=== PATIENT | male | born 1995 | race African-American/Black ===

== ENCOUNTER 2020-03-29 09:52 | Emergency (ER) | payer OTHER ==
[~2020-03-29] VITALS: Ht 165.1 cm; Wt 92.2 kg
--- NOTE | 2020-03-29 11:01 | REP ---
INDICATION: sob/cough. COMPARISON: None. TECHNIQUE: AP seated portable chest FINDINGS: Lungs are well inflated. No gross pleural effusion, dense consolidation or parenchymal mass. There is left ventricular configuration of the heart which may be exaggerated by AP portable technique. No vascular redistribution or edema. The aorta mediastinal contours are normal. Airway intact. Dawson thorax without acute finding. No free air under the diaphragm. IMPRESSION: 1. Lungs well inflated and clear. 2. Left ventricular configuration of the heart which may be exaggerated by AP portable technique. No vascular redistribution or edema. <Electronically signed by Geovanny Montero > 03/29/20 [id number]
[2020-03-29] MEDS ORDERED: AMOX500C PO (11:25)
[2020-03-29] MEDS ORDERED: ACETAMINOPHEN 325 MG TAB PO ONE (11:30)
[2020-03-29 11:44] VITALS: BP 136/92
[2020-03-29 11:51] LABS: INFLUENZA A AMPLIFICATION NEGATIVE (NEGATIVE); INFLUENZA B AMPLIFICATION NEGATIVE (NEGATIVE)
--- NOTE | 2020-03-29 19:41 | ECGEPIP ---
[facility] - ED Test Date: 2020-03-29 Pat Name: LESLIE WORLEY Department: Room: - Gender: Male Sat Act Instructor: RADHA : 1995 Requested By: Roxy Angeles Order Number: [id number] Reading MD: Mago Porter Measurements Intervals [place] Rate: 68 P: 50 VA: 146 QRS: 50 QRSD: 86 T: -8 QT: 353 QTc: 378 Interpretive Statements SINUS RHYTHM WITH SINUS ARRHYTHMIA NSTTW abnormalities NO PRIOR Electronically Signed on 03-29-2020 19:40:52 EST by Mago Porter
--- NOTE | 2020-03-30 06:46 | ED PDOC ---
Post-Departure Follow-Up giovanna ramos formal report of cxr for fu Roxy Leon MD Mar 30, 2020 06:46
== END 2020-03-29 11:46 | disposition home or self-care (01) ==
LOC: M ED 09:52
DX: J02.0 Streptococcal pharyngitis (principal); R05 Cough; Z20.828 Contact with and (suspected) exposure to other viral communicable diseases
CPT/HCPCS: 71045; 87502; 87880; 93005; 99284; U0003

== ENCOUNTER 2020-06-02 21:27 | Emergency (ER) | payer OTHER ==
[~2020-06-02] VITALS: Ht 165.1 cm; Wt 81.8 kg
[~2020-06-02 21:27] MED LIST: AMOX500C PO
[2020-06-02 21:28] VITALS: BP 132/86
== END 2020-06-02 22:45 | disposition left against medical advice (07) ==
LOC: M ED 21:27
DX: Z53.21 Procedure and treatment not carried out due to patient leaving prior to being seen by health care provider (principal)

== ENCOUNTER 2020-06-04 09:00 | Emergency (ER) | payer OTHER ==
[~2020-06-04] VITALS: Ht 162.6 cm; Wt 88.8 kg
[2020-06-04 09:01] VITALS: BP 134/87
== END 2020-06-04 11:04 | disposition home or self-care (01) ==
LOC: M ED 09:00
DX: U07.1 COVID-19 (principal)

== ENCOUNTER 2020-08-03 15:20 | Emergency (ER) | payer OTHER ==
[~2020-08-03] VITALS: Ht 162.6 cm; Wt 92.5 kg
[2020-08-03 15:20] VITALS: BP 141/72
[2020-08-03] MEDS ORDERED: PENICILLIN V POTASSIUM 500 MG TAB PO ONE (16:05)
[2020-08-03] MEDS ORDERED: PENI500T PO (16:10)
== END 2020-08-03 16:15 | disposition home or self-care (01) ==
LOC: M ED 15:20
DX: J02.0 Streptococcal pharyngitis (principal); R09.81 Nasal congestion; Z86.16 Personal history of COVID-19

== ENCOUNTER 2022-04-12 12:13 | Emergency (ER) | payer OTHER ==
[~2022-04-12] VITALS: Ht 165.1 cm; Wt 81.8 kg
[~2022-04-12 12:13] MED LIST changes: +PENI500T PO
[2022-04-12] MEDS ORDERED: KETOROLAC 30 MG/ML 1ML VIAL IV ONE (13:40)
[2022-04-12] MEDS ORDERED: NS 1,000 ML IV ONE (13:40)
[2022-04-12] MEDS ORDERED: ISOVUE-370 76% 100ML VIAL As Ordered ONE (13:43)
[2022-04-12 14:09] LABS: BASO % 0.5 % (0.0-1.0); EOS # 0.1 10^3/uL (0.0-0.5); EOS % 3.3 % (0.0-3.0); HEMATOCRIT 44.4 % (42.0-52.0); HEMOGLOBIN 15.2 g/dl (13.5-17.5); LYMPH # 1.6 10^3/uL (1.5-5.0); LYMPH % 43.7 % (24.0-44.0); MEAN CORPUSCULAR HEMOGLOBIN 29.7 pg (27.0-33.0); MEAN CORPUSCULAR HGB CONC 34.2 g/dl (32.0-36.5); MEAN CORPUSCULAR VOLUME 86.9 fl (80.0-96.0); MONO # 0.2 10^3/uL (0.0-0.8); NEUTROPHILS # 1.7 10^3/uL (1.5-8.5); NEUTROPHILS % 46.2 % (36.0-66.0); PLATELET COUNT, AUTOMATED 234 10^3/uL (150-450); RED BLOOD COUNT 5.11 10^6/uL (4.30-6.10); WHITE BLOOD COUNT 3.6 10^3/uL (4.0-10.0)
[2022-04-12 14:56] LABS: ALBUMIN 4.3 G/DL (3.2-5.2); ALT/SGPT 60 U/L (7.0-40); BILIRUBIN,DIRECT < 0.1 MG/DL (<0.4); BILIRUBIN,TOTAL 0.5 MG/DL (0.3-1.2); TOTAL PROTEIN 6.9 G/DL (5.7-8.2)
[2022-04-12] MEDS ORDERED: NAPR-837 PO (16:03)
[2022-04-12 16:16] VITALS: BP 135/85
== END 2022-04-12 16:23 | disposition home or self-care (01) ==
LOC: M ED 12:13
DX: S76.211A Strain of adductor muscle, fascia and tendon of right thigh, initial encounter (principal); N28.1 Cyst of kidney, acquired; Z91.018 Allergy to other foods; Z88.6 Allergy status to analgesic agent; Y93.9 Activity, unspecified
CPT/HCPCS: 74177; 80047; 80076; 81000; 81015; 85025; 87086; 96361; 96374; 99284; J1885

== ENCOUNTER 2022-06-19 01:38 | Emergency (ER) | payer OTHER ==
[~2022-06-19] VITALS: Ht 165.1 cm; Wt 82.3 kg
[~2022-06-19 01:38] MED LIST changes: +NAPR-837 PO
[2022-06-19] MEDS ORDERED: ACETAMINOPHEN 325 MG TAB PO ONE (01:55)
[2022-06-19] MEDS ORDERED: ACETAMINOPHEN TAB 650MG DOSE (2X325MG) PO ONE (02:05)
[2022-06-19] MEDS ORDERED: IBUPROFEN 600MG TAB PO ONE (04:25)
[2022-06-19] MEDS ORDERED: CEPH500C PO (06:23)
[2022-06-19 06:27] VITALS: BP 128/81
== END 2022-06-19 06:36 | disposition home or self-care (01) ==
LOC: M ED 01:38
DX: U07.1 COVID-19 (principal); J02.9 Acute pharyngitis, unspecified; F17.200 Nicotine dependence, unspecified, uncomplicated; Z91.018 Allergy to other foods; Z79.899 Other long term (current) drug therapy

== ENCOUNTER 2022-07-19 10:30 | Emergency (ER) | payer OTHER ==
[~2022-07-19] VITALS: Ht 162.6 cm; Wt 87.1 kg
[~2022-07-19 10:30] MED LIST changes: +CEPH500C PO
[2022-07-19] MEDS ORDERED: ALBUTEROL 90 MCG/ACT 8GM HFA INHALER INH ONE (12:10)
[2022-07-19] MEDS ORDERED: VENTAER INH (13:42)
[2022-07-19 13:50] VITALS: BP 142/80
== END 2022-07-19 13:51 | disposition home or self-care (01) ==
LOC: M ED 10:30
DX: J98.01 Acute bronchospasm (principal); Z86.16 Personal history of COVID-19; F17.290 Nicotine dependence, other tobacco product, uncomplicated; Z91.018 Allergy to other foods

== ENCOUNTER 2022-09-11 19:38 | Emergency (ER) | payer OTHER ==
[~2022-09-11] VITALS: Ht 162.6 cm; Wt 88.2 kg
[~2022-09-11 19:38] MED LIST changes: +VENTAER INH
[2022-09-11 19:44] VITALS: BP 157/99
[2022-09-12] MEDS ORDERED: CYCL5TAB PO (12:16)
[2022-09-12] MEDS ORDERED: IBUP200C25 PO (17:25)
[2022-09-12] MEDS ORDERED: VENTAER INH (17:25)
== END 2022-09-12 00:16 | disposition left against medical advice (07) ==
LOC: EDBD 19:38 → M ED 19:38
DX: Z53.21 Procedure and treatment not carried out due to patient leaving prior to being seen by health care provider (principal)

== ENCOUNTER 2022-09-12 12:03 | Inpatient (IN) | payer OTHER ==
[~2022-09-12] VITALS: Ht 162.6 cm; Wt 89.2 kg
[2022-09-12] MEDS ORDERED: CYCL5TAB PO (12:16)
[2022-09-12 13:15] LABS: HEMATOCRIT 45.7 % (42.0-52.0); HEMOGLOBIN 15.4 g/dl (13.5-17.5); MEAN CORPUSCULAR HEMOGLOBIN 30.1 pg (27.0-33.0); MEAN CORPUSCULAR HGB CONC 33.7 g/dl (32.0-36.5); MEAN CORPUSCULAR VOLUME 89.3 fl (80.0-96.0); PLATELET COUNT, AUTOMATED 272 10^3/uL (150-450); RED BLOOD COUNT 5.12 10^6/uL (4.30-6.10); WHITE BLOOD COUNT 5.9 10^3/uL (4.0-10.0)
[2022-09-12 13:32] LABS: ETHYL ALCOHOL (ETHANOL) 0.003 % (0.000-0.010)
[2022-09-12 13:33] LABS: ACETAMINOPHEN LEVEL < 2.0 UG/ML (10.0-20.0)
[2022-09-12 13:34] LABS: ALBUMIN 4.3 G/DL (3.2-5.2); ALKALINE PHOSPHATASE 52 U/L (46-116); ALT/SGPT 29 U/L (7.0-40); AST/SGOT 24 U/L (<34); BILIRUBIN,DIRECT 0.1 MG/DL (<0.4); BILIRUBIN,TOTAL 0.6 MG/DL (0.3-1.2); BLOOD UREA NITROGEN 15 MG/DL (9-23); CALCIUM LEVEL 9.7 MG/DL (8.5-10.1); CARBON DIOXIDE LEVEL 27 MMOL/L (20-31); CHLORIDE LEVEL 106 MMOL/L (98-107); CREATININE FOR GFR 1.03 MG/DL (0.70-1.30); GLOMERULAR FILTRATION RATE > 60.0 (>60); GLUCOSE, FASTING 71 MG/DL (60-100); POTASSIUM SERUM 4.5 MMOL/L (3.5-5.1); SALICYLATE LEVEL < 3.0 MG/DL (<30); SODIUM LEVEL 140 MMOL/L (136-145); TOTAL PROTEIN 7.8 G/DL (5.7-8.2)
[2022-09-12 13:35] LABS: THYROID STIMULATING HORMONE 1.896 uIU/ML (0.55-4.78)
[2022-09-12 13:44] LABS: AMPHETAMINES LEVEL URINE NEGATIVE (NEGATIVE); BENZODIAZEPINES URINE NEGATIVE (NEGATIVE)
[2022-09-12 13:45] LABS: BARBITURATES URINE NEGATIVE (NEGATIVE); CANNABINOIDS URINE NEGATIVE (NEGATIVE); COCAINE METABOLITE URINE NEGATIVE (NEGATIVE); METHADONE URINE NEGATIVE (NEGATIVE); OPIATES URINE NEGATIVE (NEGATIVE); PHENCYCLIDINE URINE NEGATIVE (NEGATIVE)
[2022-09-12] MEDS ORDERED: PERCOCET 5MG/325MG TAB PO ONE (16:35)
[2022-09-12] MEDS ORDERED: IBUP200C25 PO (17:25)
[2022-09-12] MEDS ORDERED: VENTAER INH (17:25)
[2022-09-12] MEDS ORDERED: HOME MED LIST COMPLETE! XX SCH (17:30)
[2022-09-12] MEDS ORDERED: ALBUTEROL 90 MCG/ACT 8GM HFA INHALER INH PRN (23:00)
[2022-09-12] MEDS ORDERED: traZODone 50 MG TAB PO PRN (23:00)
[2022-09-12] MEDS ORDERED: MAALOX 30 ML SUSP *UDC PO PRN (23:00)
[2022-09-12] MEDS ORDERED: MOM 30ML SUSPENSION UDC PO PRN (23:00)
[2022-09-12] MEDS: ACETAMINOPHEN TAB 650MG DOSE (2X325MG) PO PRN (23:49)
[2022-09-13 00:30] VITALS: BP 128/91
[2022-09-13 05:15] VITALS: BP 122/56
[2022-09-13] MEDS: ACETAMINOPHEN TAB 650MG DOSE (2X325MG) PO PRN ×2 (08:30→18:50)
[2022-09-13] MEDS ORDERED: CYCLOBENZAPRINE 5MG TABLET PO SCH (09:00)
[2022-09-13] MEDS ORDERED: NICOTINE 21MG/24HR 1 EA TRANSDERMAL TD PRN (12:15)
[2022-09-13] MEDS ORDERED: hydrOXYzine 50 MG TAB PO PRN (12:15)
[2022-09-13 17:22] VITALS: BP 129/60
[2022-09-13] MEDS ORDERED: SERTRALINE HCL 25 MG TABLET PO ONE (21:00)
[2022-09-14 06:50] VITALS: BP 141/91
[2022-09-14] MEDS: ACETAMINOPHEN TAB 650MG DOSE (2X325MG) PO PRN ×2 (08:25→14:51)
[2022-09-14] MEDS ORDERED: SERT50TA29 PO (13:22)
[2022-09-14] MEDS ORDERED: NICO21PAT TD (13:22)
[2022-09-14 15:51] VITALS: BP 137/93
[2022-09-14] MEDS: IBUPROFEN 600MG TAB PO PRN (18:48)
[2022-09-14] MEDS ORDERED: SERTRALINE HCL 50 MG TAB PO SCH (21:00)
[2022-09-15 06:57] VITALS: BP 139/88
[2022-09-15] MEDS: IBUPROFEN 600MG TAB PO PRN (08:07)
== END 2022-09-15 11:00 | disposition home or self-care (01) | DRG 881 ==
LOC: M ED 12:03 → M ED INP 19:40 → M PSY 23:30
PROVIDERS: ADMIT Student in an Organized Health Care Education/Training Program; ATTEND Student in an Organized Health Care Education/Training Program
DX: F32.A Depression, unspecified (principal); R45.851 Suicidal ideations; S62.326D Displaced fracture of shaft of fifth metacarpal bone, right hand, subsequent encounter for fracture with routine healing; F17.290 Nicotine dependence, other tobacco product, uncomplicated; F43.23 Adjustment disorder with mixed anxiety and depressed mood; M54.9 Dorsalgia, unspecified; Z56.6 Other physical and mental strain related to work; G89.29 Other chronic pain; Z63.0 Problems in relationship with spouse or partner; Z79.899 Other long term (current) drug therapy; Z20.822 Contact with and (suspected) exposure to COVID-19; Z91.018 Allergy to other foods; Z91.82 Personal history of military deployment

== ENCOUNTER 2022-10-09 22:03 | Inpatient (IN) | payer OTHER ==
[~2022-10-09] VITALS: Ht 162.6 cm; Wt 81.2 kg
[~2022-10-09 22:03] MED LIST changes: +CYCL5TAB PO; +IBUP200C25 PO; +NICO21PAT TD; +SERT50TA29 PO
[2022-10-09 22:54] LABS: HEMATOCRIT 46.5 % (42.0-52.0); HEMOGLOBIN 15.9 g/dl (13.5-17.5); MEAN CORPUSCULAR HEMOGLOBIN 30.3 pg (27.0-33.0); MEAN CORPUSCULAR HGB CONC 34.2 g/dl (32.0-36.5); MEAN CORPUSCULAR VOLUME 88.7 fl (80.0-96.0); PLATELET COUNT, AUTOMATED 279 10^3/uL (150-450); RED BLOOD COUNT 5.24 10^6/uL (4.30-6.10); WHITE BLOOD COUNT 4.9 10^3/uL (4.0-10.0)
[2022-10-09 23:15] LABS: ETHYL ALCOHOL (ETHANOL) < 0.003 % (0.000-0.010)
[2022-10-09 23:16] LABS: ACETAMINOPHEN LEVEL < 2.0 UG/ML (10.0-20.0); ALBUMIN 4.1 G/DL (3.2-5.2); ALKALINE PHOSPHATASE 64 U/L (46-116); ALT/SGPT 44 U/L (7.0-40); AST/SGOT 21 U/L (<34); BILIRUBIN,DIRECT 0.1 MG/DL (<0.4); BILIRUBIN,TOTAL 0.4 MG/DL (0.3-1.2); BLOOD UREA NITROGEN 16 MG/DL (9-23); CALCIUM LEVEL 9.7 MG/DL (8.5-10.1); CARBON DIOXIDE LEVEL 30 MMOL/L (20-31); CHLORIDE LEVEL 107 MMOL/L (98-107); CREATININE FOR GFR 1.17 MG/DL (0.70-1.30); GLOMERULAR FILTRATION RATE > 60.0 (>60); GLUCOSE, FASTING 107 MG/DL (60-100); SALICYLATE LEVEL < 3.0 MG/DL (<30); SODIUM LEVEL 141 MMOL/L (136-145); TOTAL PROTEIN 7.6 G/DL (5.7-8.2)
[2022-10-09 23:18] LABS: THYROID STIMULATING HORMONE 3.159 uIU/ML (0.55-4.78)
[2022-10-10] MEDS ORDERED: SERT50TA29 PO (00:03)
[2022-10-10] MEDS ORDERED: HOME MED LIST COMPLETE! XX SCH (00:05)
[2022-10-10 00:47] LABS: AMPHETAMINES LEVEL URINE NEGATIVE (NEGATIVE); BARBITURATES URINE NEGATIVE (NEGATIVE); BENZODIAZEPINES URINE NEGATIVE (NEGATIVE); CANNABINOIDS URINE NEGATIVE (NEGATIVE); COCAINE METABOLITE URINE NEGATIVE (NEGATIVE); METHADONE URINE NEGATIVE (NEGATIVE); OPIATES URINE NEGATIVE (NEGATIVE); PHENCYCLIDINE URINE NEGATIVE (NEGATIVE)
[2022-10-10] MEDS ORDERED: MOM 30ML SUSPENSION UDC PO PRN (03:25)
[2022-10-10] MEDS ORDERED: MAALOX 30 ML SUSP *UDC PO PRN (03:25)
[2022-10-10] MEDS ORDERED: ACETAMINOPHEN TAB 650MG DOSE (2X325MG) PO PRN (03:25)
[2022-10-10 06:28] VITALS: BP 132/90
[2022-10-10] MEDS: ESCITALOPRAM OXALATE 5MG TABLET (LEXAPRO) PO SCH (09:00)
[2022-10-10] MEDS: NICOTINE 14 MG/24 HR TRANSDERMAL TD SCH (09:00)
[2022-10-10 16:29] VITALS: BP 126/70
[2022-10-10] MEDS: traZODone 50 MG TAB PO PRN (20:10)
[2022-10-11 06:15] VITALS: BP 137/70
[2022-10-11] MEDS: ESCITALOPRAM OXALATE 5MG TABLET (LEXAPRO) PO SCH (08:08)
[2022-10-11] MEDS: NICOTINE 14 MG/24 HR TRANSDERMAL TD SCH (08:09)
[2022-10-11 17:14] VITALS: BP 133/71
[2022-10-11] MEDS: traZODone 50 MG TAB PO PRN (20:19)
[2022-10-12 06:42] VITALS: BP 125/78
[2022-10-12] MEDS ORDERED: NICO14PA TD (08:17)
[2022-10-12] MEDS ORDERED: LEXA5TAB13 PO (08:17)
[2022-10-12] MEDS ORDERED: TRAZ-252 PO (08:17)
[2022-10-12] MEDS: ESCITALOPRAM OXALATE 5MG TABLET (LEXAPRO) PO SCH (08:31)
[2022-10-12] MEDS: NICOTINE 14 MG/24 HR TRANSDERMAL TD SCH (08:32)
== END 2022-10-12 13:21 | disposition home or self-care (01) | DRG 881 ==
LOC: M ED 22:03 → M ED INP 10-10 03:25 → M PSY 10-10 04:19
PROVIDERS: ADMIT Student in an Organized Health Care Education/Training Program; ATTEND Student in an Organized Health Care Education/Training Program
DX: F32.A Depression, unspecified (principal); R45.851 Suicidal ideations; F12.90 Cannabis use, unspecified, uncomplicated; F43.20 Adjustment disorder, unspecified; F41.9 Anxiety disorder, unspecified; F17.200 Nicotine dependence, unspecified, uncomplicated; Z63.5 Disruption of family by separation and divorce; Z59.89 Other problems related to housing and economic circumstances; Z91.018 Allergy to other foods; Z79.899 Other long term (current) drug therapy; M54.9 Dorsalgia, unspecified

== ENCOUNTER 2022-12-09 23:30 | Emergency (ER) | payer OTHER ==
[~2022-12-09] VITALS: Ht 162.6 cm; Wt 77.0 kg
[~2022-12-09 23:30] MED LIST changes: +LEXA5TAB13 PO; +NICO14PA TD; +TRAZ-252 PO
[2022-12-10 00:42] LABS: HEMATOCRIT 47.8 % (42.0-52.0); HEMOGLOBIN 16.4 g/dl (13.5-17.5); MEAN CORPUSCULAR HEMOGLOBIN 30.7 pg (27.0-33.0); MEAN CORPUSCULAR HGB CONC 34.3 g/dl (32.0-36.5); MEAN CORPUSCULAR VOLUME 89.5 fl (80.0-96.0); PLATELET COUNT, AUTOMATED 255 10^3/uL (150-450); RED BLOOD COUNT 5.34 10^6/uL (4.30-6.10); WHITE BLOOD COUNT 5.2 10^3/uL (4.0-10.0)
[2022-12-10 00:44] LABS: AMPHETAMINES LEVEL URINE NEGATIVE (NEGATIVE); BARBITURATES URINE NEGATIVE (NEGATIVE); BENZODIAZEPINES URINE NEGATIVE (NEGATIVE); CANNABINOIDS URINE NEGATIVE (NEGATIVE); COCAINE METABOLITE URINE NEGATIVE (NEGATIVE); METHADONE URINE NEGATIVE (NEGATIVE); OPIATES URINE NEGATIVE (NEGATIVE); PHENCYCLIDINE URINE NEGATIVE (NEGATIVE)
[2022-12-10 01:32] LABS: ETHYL ALCOHOL (ETHANOL) 0.188 % (0.000-0.010)
[2022-12-10 01:33] LABS: SALICYLATE LEVEL < 3.0 MG/DL (<30)
[2022-12-10 01:34] LABS: ACETAMINOPHEN LEVEL < 2.0 UG/ML (10.0-20.0); ALBUMIN 4.3 G/DL (3.2-5.2); ALKALINE PHOSPHATASE 66 U/L (46-116); ALT/SGPT 53 U/L (7.0-40); AST/SGOT 31 U/L (<34); BILIRUBIN,DIRECT 0.1 MG/DL (<0.4); BILIRUBIN,TOTAL 0.4 MG/DL (0.3-1.2); BLOOD UREA NITROGEN 9 MG/DL (9-23); CALCIUM LEVEL 9.3 MG/DL (8.5-10.1); CARBON DIOXIDE LEVEL 24 MMOL/L (20-31); CHLORIDE LEVEL 106 MMOL/L (98-107); CREATININE FOR GFR 1.11 MG/DL (0.70-1.30); GLOMERULAR FILTRATION RATE > 60.0 (>60); GLUCOSE, FASTING 109 MG/DL (60-100); SODIUM LEVEL 143 MMOL/L (136-145); TOTAL PROTEIN 7.7 G/DL (5.7-8.2)
[2022-12-10 01:36] LABS: THYROID STIMULATING HORMONE 1.508 uIU/ML (0.55-4.78)
[2022-12-10 08:40] VITALS: BP 159/80; TEMP 98.5; O2SAT 97
== END 2022-12-10 08:47 | disposition home or self-care (01) ==
LOC: M ED 23:30
DX: F10.20 Alcohol dependence, uncomplicated (principal); F32.A Depression, unspecified; R45.851 Suicidal ideations; F51.01 Primary insomnia; F17.200 Nicotine dependence, unspecified, uncomplicated; Z91.018 Allergy to other foods; Z79.52 Long term (current) use of systemic steroids; Z79.899 Other long term (current) drug therapy

== ENCOUNTER → 2023-08-24 | Outpatient (REF) | LOC: M LAB 13:07 | PROVIDERS: ATTEND Nurse Practitioner Adult Health | DX: Z02.1 Encounter for pre-employment examination (principal) ==